=== PATIENT | male | born 1990 | race Two or more races ===

== ENCOUNTER 2024-12-16 22:06 | Emergency (ER) | payer SELFPAY ==
[2024-12-16 22:51] VITALS: BP 168/90; PULSE 71; RESP 20; TEMP 36.6; O2SAT 99; BMI 30.4
--- NOTE | 2024-12-16 23:37 | XR_ITS ---
Examination: Lumbar spine 3 views Technique AP lateral, lateral lower lumbar spine 3 views Date and time: December 16, 2024 1143 hours INDICATIONS: Low back pain radiating to the legs beginning 3 days ago. FINDINGS: No lumbar fracture Moderate to advanced disc narrowing L5-S1 No spondylolisthesis IMPRESSION: Moderate to advanced degenerative disc disease L5-S1
--- NOTE | 2024-12-16 23:40 | EDNOTE_ITS ---
ED General RME/HPI General Chief complaint: Back Pain/Injury Stated complaint: LEFT LOWER BACK RADIATING TO LEG X 3 DAYS Time Seen by Provider: 12/16/24 22:17 Arrival date/time: 12/16/24 22:06 RME / HPI RME / HPI narrative: 34-year-old male with no relevant past medical history comes to the ED due to complaints of left lower back pain with radiation to his left lower leg as well. Patient states that for the past 3 days he has not had this pain which has increased has been impairing his sleep and ability to lay flat and even sit down. Patient states that around 3 days ago he was lifting a heavy wood material from the ground and he felt something pull in his left lower back. Patient denies any loss of sensation in his lower extremity or any bowel incontinence or urinary incontinence. Denies any fevers, chest pain, shortness of breath, nausea, vomiting, abdominal pain, or burning sensation urination. Otherwise patient has no other complaints at this time. Admit social drinking, denies any smoking or illicit drugs Related Data Previous Rx's ?Medication ?Instructions ?Recorded baclofen 5 mg tablet 5 mg PO TID PRN muscle spasm #15 12/17/24 tabs naproxen 250 mg tablet 250 mg PO BID PRN pain #10 t abs 12/17/24 Allergies Allergy/AdvReac Type Severity Reaction Status Date / Time No Known Allergies Allergy Verified 12/16/24 22:08 Review of Systems Review of Systems Systems Reviewed: All systems reviewed, normal except as documented Past Medical History Past Medical History Comments PMH COMMENT: PMH: none Allergies: NKDA Social: Social drinker, denies illicit drugs or smoking ED Exam Narrative Physical exam: Gen: A&O X 3, mild distress due to pain HEENT: NCAT, EOMI, Pupils reactive OSCAR, not icteric. External ears normal. No rhinorrhea. Moist mucous membranes. Neck: Supple, full range of motion, no observable masses, No meningeal sign. Lungs: No Respiratory distress, clear bilateral. CV: RRR, no murmurs. Abdomen: Soft, nondistended, No rebound tenderness. MSK: No joint swelling, no redness, peripheral pulses presents, lumbar with no edema, Pain with palpation of L lower back, positive straight leg test. Skin: No rashes, petechiae, lesions. Neuro: No focal neurological deficits appreciated, sensory and motor intact. Psych: Cooperative, appropriate mood and effect. Course Quality Measures none Orders Category Date Time Status XR lumbar spine 2-3V Stat Exams 12/16/24 23:37 Completed Dexamethasone Inj [Decadron Inj] Med 12/16/24 23:39 Discontinued 10 mg IM X1 ONE Diazepam [Valium] Med 12/16/24 23:39 Discontinued 2 mg PO X1 ONE Ketorolac Inj [Toradol Inj] Med 12/16/24 23:39 Discontinued 30 mg IM X1 ONE Vital Signs Vital signs: Vital Signs Temperature 97.9 F 12/16/24 22:51 Pulse Rate 71 12/16/24 22:51 Respiratory Rate 20 12/16/24 22:51 Blood Pressure 168/90 H 12/16/24 22:51 Pulse Oximetry (%) 99 12/16/24 22:51 Oxygen Delivery Method Room Air 12/16/24 22:51 Discharge Plan Plan Patient Disposition: HOME (Self Care) Prescriptions/Referrals Prescriptions/Med Rec: New baclofen 5 mg tablet 5 mg PO TID PRN (Reason: muscle spasm) Qty: 15 0RF naproxen 250 mg tablet 250 mg PO BID PRN (Reason: pain) Qty: 10 0RF Problem List Clinical Impression: Lumbar radiculopathy Patient/Caregiver Discharge Instructions Other Activity Instructions:: Follow-up primary care physician within 5 days You have been prescribed baclofen 5 mg 3 times daily as needed for pain for the next 5 days. You have been prescribed naproxen 250 mg twice daily as needed for pain for the next 5 days. Recommend avoiding heavy lifting for now. Recommend outpatient physical therapy, you will have to see your primary care physician to refer you. Come back to the ED if pain worsens, develop any neurological deficits or have worsening symptoms. Saque antionette de seguimiento con pacheco doctor primario dentro de 5 mojica Se le carmen recetado Baclofen 5mg 3 veces al edwin miracle lo necesite para dolor por los proximos 5 mojica Se le carmen recetado Naproxen 250mg 2 veces al edwin miracle lo necesite para dolor por los proximos 5 mojica Recomendamos que evite levantar objetos pesados por 7 mojica Recomendamos terapia fisica, ulices necesitara un referido de pacheco doctor primario Ashutoshva a poly de emergencia si pacheco dolor empeora o si nota alguna deficiencia neurologica o peores sintomas. Education Materials: Back Safety: Lifting, ED Back Care Tips, ED Back Pain (Acute or Chronic) Print Language: Japanese Stand Alone Forms: Karina Award Info., Patient Portal Info Letter MDM Narrative [facility] hospital course: Patient was seen evaluated by myself upon arrival. Patient have a positive straight leg test, but no overt deformities or loss of sensation on physical exam. Diagnostic imaging was ordered and combination of Toradol, Decadron, and Valium was ordered. Patient is not currently driving and will have somebody pick him up from the ER once he is discharged. Lumbar spine XR did not show any fractures, but did show degenerative disc disease of L5-S1. Patient states his pain is slightly better. At this time patient is stable enough to be discharged home. Patient agrees with plan. Case disclosed with Attending Dr. Yair Parks PGY2 Disclaimer: Even though this this note was dictated by speech recognition and even though it was carefully revised there may still be minor errors in business control specialist due to voice recognition software. Medication Administration(s) Medication Administration History Discontinued Medications Dexamethasone Sodium Phosphate (Dexamethasone Sod Phos Inj 10 Mg/Ml Vial) 10 mg IM X1 ONE Stop: 12/16/24 23:40 Last Admin: 12/16/24 23:52 Dose: 10 mg Documented By: MISSY Diazepam (Diazepam 2 Mg Tablet) 2 mg PO X1 ONE Stop: 12/16/24 23:40 Last Admin: 12/16/24 23:52 Dose: 2 mg Documented By: MISSY Ketorolac Tromethamine (Ketorolac Inj 60 Mg/2 Ml Vial) 30 mg IM X1 ONE Stop: 12/16/24 23:40 Last Admin: 12/16/24 23:53 Dose: 30 mg Documented By: MISSY
[2024-12-16] MEDS: DIAZEPAM 2 MG TABLET PO (23:52)
[2024-12-16] MEDS: DEXAMETHASONE SOD PHOS INJ 10 MG/ML VIAL IM (23:52)
[2024-12-16] MEDS: KETOROLAC INJ 60 MG/2 ML VIAL 30 MG IM (23:53)
== END 2024-12-17 00:44 | disposition home or self-care (01) ==
DX: M54.16 Radiculopathy, lumbar region (principal)
CPT/HCPCS: 72100; 96372; 99283; J1100; J1885; A9270

== ENCOUNTER 2025-01-03 16:54 | Emergency (ER) | payer MEDICAID, SELFPAY ==
[2025-01-03 17:09] VITALS: BP 159/97; PULSE 78; RESP 18; TEMP 36.9; O2SAT 98; BMI 29.9
--- NOTE | 2025-01-03 17:28 | PD.EDBACK ---
ED Back Injury Pain RME/HPI General Chief Complaint: Back Pain/Injury Stated Complaint: Left lower back pain that radiates to his left leg Time Seen by Provider: 01/03/25 17:16 Arrival date/time: 01/03/25 16:54 RME / HPI RME / HPI Narrative: 34-year-old male patient came in for evaluation regarding sciatica. Patient has been having low back pain with pain radiating to the left lower abdomen back of the thigh and leg. Severity of symptoms moderate. Patient denies any urinary incontinence. Denies any bowel incontinence. Denies any saddle anesthesia patient is ambulatory with a walker crutches. Denies any weakness to the lower extremities. Denies any fever denies any trauma denies any fall. No medication was taken prior to arrival. Related Data Previous Rx's ?Medication ?Instructions ?Recorded baclofen 5 mg tablet 5 mg PO TID PRN muscle spasm #15 12/17/24 tabs naproxen 250 mg tablet 250 mg PO BID PRN pain #10 tabs 12/17/24 dexamethasone 6 mg tablet 6 mg PO QDAY #7 tabs 01/03/25 ibuprofen 800 mg tablet 800 mg PO Q8H PRN pain #30 tabs 01/03/25 methocarbamol 500 mg tablet 500 mg PO BID PRN pain #20 tabs 01/03/25 Allergies Allergy/AdvReac Type Severity Reaction Status Date / Time No Known Allergies Allergy Verified 01/03/25 17:01 Review of Systems Review of Systems Narrative Review of Systems: Review of system reviewed and within normal limits except mentioned in HPI ED Exam Narrative Physical exam: VITAL SIGNS: Reviewed. GENERAL APPEARANCE: Alert and interactive, follows commands, no acute distress, HEAD AND FACE: Non-traumatic. ENT: PERRL, pink conjunctivitis, eyelid no trauma, Mucous membrane moist. NECK: Supple, nontender, no nuchal rigidity. CHEST: No tenderness, no crepitus, no paradoxical movement, no retractions. LUNGS: Clear, well ventilated, symmetric, no rales, no wheezing, no ronchi, no stridor, good breath sounds bilaterally. HEART: Regular rate, regular rhythm, no murmur, no gallops. ABDOMEN: Soft, positive bowel sounds, nondistended, no guarding, nontender, no rebound, no masses, RECTAL: Deferred. GENITAL: Deferred. NEUROLOGICAL: Gross motor function intact sensory function intact, Appropriate for age. MUSCULOSKELETAL: low back tenderness, no midline tenderness, full range of motion. EXTREMITIES: Posterior thigh and leg tenderness, positive straight leg raising test at 45 degrees, full range of motion. SKIN: Color pink, dry, no rash, no lacerations, no abrasions, no contusions. LYMPHATICS: Deferred. Course Quality Measures none Orders Category Date Time Status Dexamethasone Inj [Decadron Inj] Med 01/03/25 17:27 Once 10 mg IM X1 ONE Ketorolac Inj [Toradol Inj] Med 01/03/25 17:27 Once 30 mg IM X1 ONE methocarbamoL [Robaxin] Med 01/03/25 17:27 Once 500 mg PO X1 ONE Vital Signs Vital signs: Vital Signs Temperature 98.4 F 01/03/25 17:09 Pulse Rate 78 01/03/25 17:09 Respiratory Rate 18 01/03/25 17:09 Blood Pressure 159/97 H 01/03/25 17:09 Pulse Oximetry (%) 98 01/03/25 17:09 Oxygen Delivery Method Room Air 01/03/25 17:09 Back Pain / Injury MDM Narrative MDM Narrative:: 34-year-old male patient came in for evaluation regarding sciatica. Patient has been having low back pain with pain radiating to the left lower abdomen back of the thigh and leg. Severity of symptoms moderate. Patient denies any urinary incontinence. Denies any bowel incontinence. Denies any saddle anesthesia patient is ambulatory with a walker crutches. Denies any weakness to the lower extremities. Denies any fever denies any trauma denies any fall. No medication was taken prior to arrival. Imaging workup is not needed this time patient not showing any cauda equina syndrome. Patient received Toradol Decadron and Robaxin with significant improvement of symptoms. Patient was advised to closely follow-up with PCP and for referral to spine surgeon or outpatient MRI of the lumbar spine. Patient family agrees with the plan. Patient data External records reviewed:: None Clinical information provided by:: patient Social determinants that could affect healthcare access:: none Patient has the following chronic illnesses:: None How is presenting disease/condition affected by chronic disease/condition?: no chronic disease Evaluation data The following diagnostics were reviewed and interpreted by me:: other (specify) (None) Lab and/or radiology exams considered but not ordered:: None Interpretation Summary: None Medications / Prescriptions Medications or Prescriptions considered but not ordered:: None Medication administrations:: Toradol Decadron Robaxin Consultations Consultation(s) initiated? (list below): No Diagnosis Differential diagnosis back pain/injury: lumbar radiculopathy, sciatica and other ( Sciatica) Most likely diagnosis given after review of the tests above:: Sciatica Admission Indicated Admission indicated?: not indicated Admission Request Was there a request for admission?: No Disposition Plan Disposition Plan: Discharge Discharge Attestation Discharge Attestation: The patient and all family members were given an opportunity to ask questions and understood the discharge instructions. Discharge instructions specifically effects, indications for sooner follow up or return to the emergency department, and the expected course of current diagnosis. Patient condition: Stable Discharge Plan Plan Patient Disposition: HOME (Self Care) Discharge Disposition comment: Stable Prescriptions/Referrals Prescriptions/Med Rec: New dexamethasone 6 mg tablet 6 mg PO QDAY Qty: 7 0RF methocarbamol 500 mg tablet 500 mg PO BID PRN (Reason: pain) Qty: 20 0RF ibuprofen 800 mg tablet 800 mg PO Q8H PRN (Reason: pain) Qty: 30 0RF No Action baclofen 5 mg tablet 5 mg PO TID PRN (Reason: muscle spasm) Qty: 15 0RF naproxen 250 mg tablet 250 mg PO BID PRN (Reason: pain) Qty: 10 0RF Problem List Clinical Impression: Sciatica Patient/Caregiver Discharge Instructions Discharge Activity: activity as tolerated Education Materials: ED Sciatica Additional Instructions: Thank you for the opportunity for serving you today. You are stable for discharged . You are advised to: Follow-up with your PCP in 1 to 2 days and ask for outpatient MRI of the lumbar spine or referral to physical therapy. Return to ED for worsening of symptoms Increase oral fluids Take medication as prescribed Print Language: Guamanian Stand Alone Forms: Karina Award Info., Patient Portal Info Letter PRAVIN/MAGGIE Supervising Physician PRAVIN/MAGGIE Supervising Physician: MD Cassandra
[2025-01-03] MEDS: KETOROLAC INJ 60 MG/2 ML VIAL 30 MG IM (17:57)
[2025-01-03] MEDS: DEXAMETHASONE SOD PHOS INJ 10 MG/ML VIAL IM (17:58)
== END 2025-01-03 18:25 | disposition home or self-care (01) ==
LOC: SERX 18:13
PROVIDERS: Emergency Provider Family Medicine
DX: M54.42 Lumbago with sciatica, left side (principal)
CPT/HCPCS: 96372; 99283; J1100; J1885

== ENCOUNTER 2025-03-29 16:00 | Inpatient (IN) | payer MEDICAID, SELFPAY ==
[2025-03-29 16:29] VITALS: BP 148/93; PULSE 101; RESP 19; TEMP 36.8; O2SAT 100; BMI 24.7
--- NOTE | 2025-03-29 16:40 | PD.EDRME ---
Rapid Medical Screening Exam RME Arrival date/time: 03/29/25 16:00 34-year-old male with a history of type 2 diabetes, was sent to the emergency room by his primary care provider for an elevated blood sugar level. Patient states he does not know how high his sugar was but was told to come to the emergency room I have greeted and performed a focused initial assessment of this patient. A comprehensive ED assessment and evaluation of the patient, analysis of all test results, and completion of the medical decision making process will be conducted by additional ED providers. Chief Complaint: Recheck/Abnormal Lab/Rx Vital signs: Vital Signs Temperature 98.2 F 03/29/25 16:29 Pulse Rate 101 H 03/29/25 16:29 Respiratory Rate 19 03/29/25 16:29 Blood Pressure 148/93 H 03/29/25 16:29 Pulse Oximetry (%) 100 03/29/25 16:29 Oxygen Delivery Method Room Air 03/29/25 16:29 Vital signs reviewed by provider: Yes Exam: Clear bilateral lung sounds GCS of 15 Soft nontender abdomen Clinical Impression: Hyperglycemia/DKA
[2025-03-29 17:07] LABS: Basophils # (Auto) 0.1 Thou/mm3 (0.0-0.2); Basophils % (Auto) 1 % (0-2.5); Eosinophils # (Auto) 0.0 Thou/mm3 (0.0-0.5); Eosinophils % (Auto) 0 % (0-10); Hematocrit 45.5 % (41.0-53.0); Hemoglobin 15.6 g/dL (13.5-16.0); Immature Granulocytes Auto 0.05 Thou/mm3 (0.00-0.00); Lymphocytes # (Auto) 1.4 Thou/mm3 (1.0-4.8); Lymphocytes % (Auto) 19 % (10-50); Mean Corpuscular HGB Conc 34.3 g/dl (31.0-37.0); Mean Corpuscular Hemoglobin 33.1 pg (25.0-35.0); Mean Corpuscular Volume 96 fL (80-100); Monocytes # (Auto) 0.5 Thou/mm3 (0.0-0.8); Monocytes % (Auto) 7 % (0-12); Neutrophils # (Auto) 5.6 Thou/mm3 (1.8-7.7); Neutrophils % (Auto) 73 % (37-80); Nucleated Red Blood Cell # 0.00 Thou/mm3 (0.00-0.00); Nucleated Red Blood Cell % 0 /100 WBC (0); Platelet Count 238 Thou/mm3 (140-440); RDW Standard Deviation 48.2 fL (35.1-43.9); Red Blood Count 4.72 Miln/mm3 (4.50-5.90); White Blood Count 7.7 Thou/mm3 (3.8-10.6)
[2025-03-29 17:10] LABS: Beta Hydroxybutyrate > 6.4 mmol/L (<0.6)
[2025-03-29 17:28] LABS: INR 0.9 (0.9-1.3); Partial Thromboplastin Time 29.8 Seconds (22.0-36.0); Prothrombin Time 9.8 Seconds (9.0-12.2)
[2025-03-29 17:36] LABS: Alanine Aminotransferase 11 U/L (10-49); Albumin, Serum 5.3 gm/dL (3.5-5.0); Albumin/Globulin Ratio 2.5 (1.2-2.2); Alkaline Phosphatase 107 U/L (46-116); Anion Gap 20 (7-16); Aspartate Amino Transferase 14 U/L (0-34); BUN/Creatinine Ratio 5 Ratio (12-20); Bilirubin,Total 1.2 mg/dL (0.3-1.2); Blood Urea Nitrogen 7 mg/dL (9-23); Calcium 8.9 mg/dL (8.3-10.6); Calcium (Corrected) 8.9 mg/dL (8.5-10.1); Chloride 105 mMol/L (98-107); Creatinine (Component) 1.3 mg/dL (0.6-1.3); Estimated Creatinine Clearance 69.6 mL/min (>60); Globulin 2.1 gm/dL (2.3-3.5); Glucose 371 mg/dL (74-106); Osmolality,Calculated 283 (275-295); Potassium 4.6 mMol/L (3.4-5.1); Sodium 135 mMol/L (136-145); Total Protein 7.4 gm/dL (5.7-8.2); eGFR > 60 See Note
[2025-03-29 17:39] LABS: Carbon Dioxide < 10.0 mMol/L (20.0-31.0)
[2025-03-29 17:57] LABS: Lactate (Lactic Acid) 1.2 mMol/L (0.4-2.0)
[2025-03-29 17:58] LABS: Base Excess, Venous -22 (-3-3); O2 Saturation, Venous 63 % (96-97); PCO2, Venous 21 mmHg (36-56); PO2, Venous 32 mmHg (15-58); pH, Venous 7.08 (7.33-7.66)
[2025-03-29 18:11] LABS: Magnesium 2.0 mg/dL (1.6-2.6)
[2025-03-29 18:17] VITALS: BP 140/99; PULSE 88; RESP 18; O2SAT 100
[2025-03-29] MEDS: INSULIN REG 100 UNITS/100 ML 100 UNIT/100 ML BAG 6.736 UNIT IV (18:29)
[2025-03-29] MEDS: RINGERS LACTATED 1000 ML 1,000 ML 999 ML IV ×2 (18:36→18:37)
--- NOTE | 2025-03-29 18:55 | XR_ITS ---
EXAMINATION: AP chest single view TECHNIQUE: AP portable upright chest single view Date and time: March 29, 2025, 190 hours INDICATIONS: Weakness shortness of breath today. FINDINGS: Normal heart size Lungs are clear. Osseous structures are intact IMPRESSION: No active disease
--- NOTE | 2025-03-29 18:55 | EKG_ITS ---
[facility] Test Date: 2025-03-29 Pat Name: Maximo Navarro Department: Room: - Gender: Male Bundle Tier: : 1990 Requested By: Valente Rose Order Number: [id number] Reading MD: Valente Rose Measurements Intervals [place] Rate: 86 P: 25 ND: 150 QRS: 48 QRSD: 100 T: -81 QT: 360 QTc: 432 Interpretive Statements SINUS RHYTHM MODERATE T-WAVE ABNORMALITY, CONSIDER LATERAL ISCHEMIA [-0.1+ mV T-WAVE IN I/aVL/V5/V6] MODERATE T-WAVE ABNORMALITY, CONSIDER INFERIOR ISCHEMIA [-0.1+ mV T-WAVE IN II/aVF] No previous ECG available for comparison /store/S0/[id number]/[id number].pdf
--- NOTE | 2025-03-29 19:02 | PD.RESHP ---
Documentation for date of: 03/29/25 [facility] History of Present Illness Chief complaint: abdominal pain History of present illness: Patient is 34 years old male with past medical history of recently diagnosed type 2 diabetes mellitus presented to the ED after routine outpatient labs when he was found to have significantly elevated glucose and was referred to the emergency room. Patient reports he developed abdominal pain approximately since yesterday. He also reports some nausea but no vomiting episodes. He reported polyuria but no dysuria symptoms. He denies any chest pain, headache, blood per rectum, melena, hematuria. His abdominal pain mostly localized in epigastrium. He denies drinking alcohol recently. Patient reported he was diagnosed with diabetes yesterday and was started on oral medication he cannot recall the name of. He does not take any other medications on daily basis and was not started on any new medication recently. In the ED on admission his blood pressure 140/99, pulse 88, respirations 18, patient 98.2 ?F, oxygen saturation 100% on room air. CBC was unremarkable. Chemistry showed sodium 135, bicarb undetectable <10, anion gap 20, glucose 371, lactic acid 1.2, potassium 4.6, magnesium 2, BHB > 6.4. VBG showed pH 7.08, pCO2 21. Patient was started on IV insulin in the ED and was admitted to ICU for further management of DKA. PMH: Recently diagnosed type 2 diabetes mellitus. PSH: Appendectomy. SH: Drinks alcohol socially, denies smoking or using illicit drugs. FH: Brother, sister and mother had diabetes. Allergies: NKA. Medications: Unknown medication for diabetes. Review of Systems Review of Systems Systems Reviewed: All systems reviewed, normal except as documented Exam Vital Signs Temp Pulse Resp BP Pulse Ox O2 Del Method 98.2 F 88 18 140/99 H 100 Room Air 03/29/25 16:29 03/29/25 18:17 03/29/25 18:17 03/29/25 18:17 03/29/25 18:17 03/29/25 18:17 Narrative Exam Gen: Well-developed and well-nourished. HEENT: NCAT, PERRLA, EOMI, MMM, anicteric conjunctivae. CVS: normal S1 and S2. Regular tachycardia. No M/R/G. Resp: CTA B/L. No rhonchi, rales, crackles or wheezing. Abd: soft, mildly tender in epigastrium, non-distended. BS+ in all 4 quadrants. MSK: Good ROM in BUE & BLE. No edema or rash. Neuro: CN II-XII grossly intact. Strength 5/5 in BUE & BLE. Alert and oriented x3. Psych: appropriate mood and affect. Results: Labs 03/31/25 05:10 03/31/25 05:10 Labs: Short CBC 03/29/25 Range/Units 16:45 WBC 7.7 (3.8-10.6) Thou/mm3 Hgb 15.6 (13.5-16.0) g/dL Hct 45.5 (41.0-53.0) % Plt Count 238 (140-440) Thou/mm3 BMP 03/29/25 16:45 Sodium 135 L Potassium 4.6 Chloride 105 Carbon Dioxide < 10.0 L* BUN 7 L Creatinine 1.3 Glucose 371 H Calcium 8.9 Liver Function 03/29/25 Range/Units 16:45 Total Bilirubin 1.2 (0.3-1.2) mg/dL AST 14 (0-34) U/L ALT 11 (10-49) U/L Alkaline Phosphatase 107 (46-116) U/L Albumin 5.3 H (3.5-5.0) gm/dL ABG Interpretation ABG results: 03/29/25 17:52 VBG pH 7.08 L VBG pCO2 21 L VBG pO2 32 VBG Base Excess -22 L Quality Measures Quality Measures VTE prophylaxis Medications Home Medications and Allergies Home Medications ?Medication ?Instructions ?Recorded ?Confirmed ?Type famotidine 20 mg tablet 20 mg PO BID 03/29/25 03/29/25 History Allergies Allergy/AdvReac Type Severity Reaction Status Date / Time No Known Allergies Allergy Verified 03/29/25 16:03 Visit Medications Dextrose (Dextrose 50%-Water Inj 50 Ml Syringe) 25 ml IV PRNMRX1 PRN PRN Reason: Blood Sugar - Low Enoxaparin Sodium (Enoxaparin Sod Inj 40 Mg/0.4 Ml Syringe) 40 mg SC QDAY EVIN Stop: 04/13/25 08:59 Insulin Human Regular (Myxredlin) 100 unit in 100 mls @ 6.736 mls/hr IV .[id number] PRN; Protocol PRN Reason: PER PROTOCOL Stop: 04/28/25 17:50 Last Admin: 03/29/25 18:29 Dose: 0.1 unit/kg/hr, 6.736 mls/hr Potassium Chloride (Kcl Ivpb) 10 meq in 100 mls @ 100 mls/hr IV .Q1H PRN PRN Reason: IF POTASSIUM LESS THAN 3.3 Stop: 04/28/25 18:54 Magnesium Sulfate (Magnesium Sulfate Ivpb) 2 gm in 50 mls @ 25 mls/hr IV .Q2H PRN PRN Reason: PER DKA PROTOCOL Stop: 04/28/25 18:54 Insulin Human Regular 100 unit (/ IV Miscellaneous Supplies) 100 mls @ 6.736 mls/hr IV .[id number] PRN; Protocol PRN Reason: PER PROTOCOL Stop: 04/28/25 18:54 Dextrose/Lactated Ringer's (D5-Lr) 1,000 mls @ 250 mls/hr IV .Q4H PRN PRN Reason: PER PROTOCOL Stop: 04/28/25 18:54 Lactated Ringer's (Lactated Ringers) 1,000 mls @ 250 mls/hr IV .Q4H PRN PRN Reason: PER PROTOCOL Stop: 03/30/25 18:54 Potassium Chloride 20 meq/ (Lactated Ringer's) 1,010 mls @ 250 mls/hr IV .Q4H3M PRN PRN Reason: K LEVEL 3.3 TO 5.3mM/L Stop: 04/28/25 18:54 Potassium Chloride 40 meq/ (Lactated Ringer's) 1,020 mls @ 250 mls/hr IV .Q4H5M PRN PRN Reason: K LEVEL < 3.3 mM/L Stop: 04/28/25 18:54 Potassium Chloride 40 meq/ (Dextrose/Lactated Ringer's) 1,020 mls @ 250 mls/hr IV .Q4H5M PRN PRN Reason: K LEVEL < 3.3mM/L Stop: 04/28/25 18:54 Potassium Cl/Dextrose/Lact Ringer's (Kcl 20 Meq/L In D5-Lr) 20 meq in 1,000 mls @ 250 mls/hr IV .Q4H PRN PRN Reason: K LEVEL 3.3 TO 5.3 mM/L Potassium Chloride (Kcl Ivpb) 10 meq in 100 mls @ 50 mls/hr IV PRN PRN PRN Reason: K LEVEL 3.3 to 5.3 & BG > 200 Stop: 04/28/25 18:54 Potassium Phosphate (Pot Phos 15 Mmol In Ns 250 Ml) 15 mmol in 250 mls @ 62.5 mls/hr IV PRN PRN PRN Reason: Phosphate <= 1mg/dL Stop: 04/28/25 18:54 Sodium Phosphate 15 mmol/ (Sodium Chloride) 255 mls @ 62.5 mls/hr IV .Q4H5M PRN PRN Reason: Phosphate <= 1mg/dL and K> than 5.3 Stop: 04/28/25 18:54 Sodium Bicarbonate (Sodium Bicarb Inj 8.4% Syr 50 Ml Syringe) 50 ml IV Q4HR PRN PRN Reason: For ph <= to 7.0 Stop: 04/28/25 18:54 Discontinued Medications Lactated Ringer's (Lactated Ringers) 1,000 mls @ 999 mls/hr IV .Q1H1M ONE Stop: 03/29/25 18:51 Last Admin: 03/29/25 18:36 Dose: 999 mls/hr Lactated Ringer's (Lactated Ringers) 1,000 mls @ 999 mls/hr IV .Q1H1M ONE Stop: 03/29/25 18:51 Last Admin: 03/29/25 18:37 Dose: 999 mls/hr Assessment & Plan Plan Patient is 34 years old male with past medical history of recently diagnosed type 2 diabetes mellitus presented to the ED after routine outpatient labs when he was found to have significantly elevated glucose and was referred to the emergency room. Patient reports he developed abdominal pain approximately since yesterday. Chemistry showed bicarb undetectable <10, anion gap 20, glucose 371, BHB > 6.4. VBG showed pH 7.08, pCO2 21. Patient was started on IV insulin in the ED and was admitted to ICU for further management of DKA. Neuro: No active problem. Cardiovascular: #Elevated BP. Patient reports he never been diagnosed with hypertension. Possibly due to acute status due to DKA. Will continue to monitor. Respiratory: No active problem. Gastrointestinal: #Abdominal pain. In setting of DKA. Will continue to monitor. Renal: #HAGMA. #?NICOL. Chemistry showed bicarb undetectable <10, anion gap 20, lactic acid 1.2, BHB > 6.4, Cr 1.3. VBG showed pH 7.08, pCO2 21. Plan: - management per DKA protocol. Endocrine: #Recently diagnosed diabetes mellitus. #DKA. Per patient he was diagnosed with diabetes yesterday and was started on unknown oral medication. He also had his routine labs done and was notified by his provider that he needed to go to ED due to significantly elevated glucose level. Patient reports that he started new medication for diabetes but cannot recall the name. On admission patient complains of abdominal pain, nausea and polyuria. Chemistry showed bicarb undetectable <10, anion gap 20, glucose 371, lactic acid 1.2, potassium 4.6, magnesium 2, BHB > 6.4. VBG showed pH 7.08, pCO2 21. Patient was started on IV insulin in the ED and was admitted to ICU for further management of DKA. Plan: - started on IV insulin drip. - fluid and electrolytes management per DKA protocol. Infectious Disease: No active problem. Hematology/Oncology: No active problem. Diet: NPO. DVT prophylaxis: Lovenox. GI prophylaxis: None. Code status: FULL CODE. Disposition: ICU. Plan of care discussed with attending Dr. Olivo. Valente Rose MD, PGY 3. Disclaimer: This note was dictated by speech recognition. Minor errors in band lining bander may be present due to voice recognition software. Attending Provider Attestation/Addendum After examining patient and review of the clinical data patient was found to have high probability of imminent deterioration which required my direct management and intervention TOTAL CC TIME: 45 MIN TOTAL TIME: 45 Minutes of direct medical management and planning of care. I Katelynn Olivo MD, attest that I was physically present for rucker portions of evaluation, and examined patient, labs and imagings and plan of care were discussed with IM residents team, and I agree with the findings and plans documented above. this patient had a high probability of imminent or life-threatening deterioration due to severe symptomatic hyponatremia, which required my direct attention, intervention, and personal management
[2025-03-29 19:25] LABS: Base Excess, Venous -23 (-3-3); O2 Saturation, Venous 62 % (96-97); PCO2, Venous 18 mmHg (36-56); PO2, Venous 32 mmHg (15-58); pH, Venous 7.09 (7.33-7.66)
[2025-03-29 19:39] LABS: Lactate (Lactic Acid) 11.4 mMol/L (0.4-2.0)
[2025-03-29 19:46] VITALS: BP 140/93; PULSE 86; RESP 28; TEMP 36.6; O2SAT 100
[2025-03-29 19:52] LABS: Albumin, Serum 2.5 gm/dL (3.5-5.0); Anion Gap 20 (7-16); BUN/Creatinine Ratio 10 Ratio (12-20); Blood Urea Nitrogen < 5 mg/dL (9-23); Calcium 7.3 mg/dL (8.3-10.6); Calcium (Corrected) 8.5 mg/dL (8.5-10.1); Chloride 108 mMol/L (98-107); Creatinine (Component) 0.5 mg/dL (0.6-1.3); Estimated Creatinine Clearance 181.1 mL/min (>60); Glucose 221 mg/dL (74-106); Magnesium 1.0 mg/dL (1.6-2.6); Osmolality,Calculated 279 (275-295); Phosphorous 1.2 mg/dL (2.4-5.1); Potassium 4.3 mMol/L (3.4-5.1); Sodium 138 mMol/L (136-145); eGFR > 60 See Note
[2025-03-29 19:55] LABS: Carbon Dioxide < 10.0 mMol/L (20.0-31.0)
[2025-03-29] MEDS: Magnesium Sulfate 2 GM Ivpb 2 GM/50 ML BAG IV (20:17)
[2025-03-29] MEDS: RINGERS LACTATED 500 ML 500 ML 999 ML IV (20:25)
[2025-03-29 20:29] LABS: Troponin I < 0.002 ng/mL (0.0-0.045)
[2025-03-29 20:31] LABS: Glucose Estimated Average 301 mg/dL (80-131); Hemoglobin A1C 12.1 % Hgb (4.8-6.0)
[2025-03-29 21:00] VITALS: BP 123/91; PULSE 89; RESP 25; TEMP 36.2; O2SAT 100
[2025-03-29 21:07] LABS: Cardiac Risk Estimate 7.9 RATIO (4.0-6.7); Cholesterol 323 mg/dL (132-200); HDL Cholesterol 41 mg/dL (40-60); LDH (Lactate Dehydrogenase) 138 U/L (120-246); LDL Cholesterol,Calculated 204 mg/dL (0-130); Triglycerides 391 mg/dL (30-150)
[2025-03-29] MEDS: RINGERS LACTATED 1000 ML 1,000 ML 250 ML IV (21:09)
[2025-03-29] MEDS: POTASSIUM CHL 10 mEq IVPB 10 MEQ/100 ML BAG 50 MEQ IV ×2 (21:20→23:26)
[2025-03-29 21:29] LABS: Lactate (Lactic Acid) 1.6 mMol/L (0.4-2.0)
[2025-03-29 22:00] VITALS: BP 115/77; PULSE 81; RESP 20; O2SAT 100
[2025-03-29 22:24] LABS: Reflex Lactate? Y
[2025-03-29 23:00] VITALS: BP 117/72; PULSE 84; RESP 20; O2SAT 100
[2025-03-30] VITALS (13 sets, daily range): BP systolic 98–118; BP diastolic 62–79; PULSE 64–78; RESP 13–23; TEMP 36.3–36.9; O2SAT 99–100; BMI 24.3; BMI 24.4
[2025-03-30 00:44] LABS: Albumin, Serum 3.9 gm/dL (3.5-5.0); Anion Gap 16 (7-16); BUN/Creatinine Ratio 6 Ratio (12-20); Blood Urea Nitrogen < 5 mg/dL (9-23); Calcium 7.7 mg/dL (8.3-10.6); Calcium (Corrected) 7.8 mg/dL (8.5-10.1); Carbon Dioxide 11.9 mMol/L (20.0-31.0); Chloride 112 mMol/L (98-107); Creatinine (Component) 0.8 mg/dL (0.6-1.3); Estimated Creatinine Clearance 113.2 mL/min (>60); Glucose 232 mg/dL (74-106); Magnesium 1.8 mg/dL (1.6-2.6); Osmolality,Calculated 283 (275-295); Phosphorous 1.1 mg/dL (2.4-5.1); Potassium 3.2 mMol/L (3.4-5.1); Sodium 140 mMol/L (136-145); eGFR > 60 See Note
[2025-03-30] MEDS: POT CHL ADDITIVE 40 MEQ in DEXTROSE 5%-LACTATED RINGERS 1,000 ML 250 MEQ IV ×2 (01:00→06:58)
[2025-03-30] MEDS: POT CHL ADDITIVE 40 MEQ in RINGERS LACTATED 1000 ML 1,000 ML 250 MEQ IV (02:00)
[2025-03-30] MEDS: POT PHOS 15 mMol in NS 250 ML 15 MMOL/250 ML BAG 62.5 MMOL IV (04:30)
[2025-03-30] MEDS: Magnesium Sulfate 4 GM Ivpb 4 GM/50 ML BAG IV (05:00)
[2025-03-30 05:32] LABS: Basophils # (Auto) 0.0 Thou/mm3 (0.0-0.2); Basophils % (Auto) 1 % (0-2.5); Eosinophils # (Auto) 0.1 Thou/mm3 (0.0-0.5); Eosinophils % (Auto) 1 % (0-10); Hematocrit 34.0 % (41.0-53.0); Hemoglobin 12.0 g/dL (13.5-16.0); Immature Granulocytes Auto 0.04 Thou/mm3 (0.00-0.00); Lymphocytes # (Auto) 0.8 Thou/mm3 (1.0-4.8); Lymphocytes % (Auto) 14 % (10-50); Mean Corpuscular HGB Conc 35.3 g/dl (31.0-37.0); Mean Corpuscular Hemoglobin 33.1 pg (25.0-35.0); Mean Corpuscular Volume 94 fL (80-100); Monocytes # (Auto) 0.7 Thou/mm3 (0.0-0.8); Monocytes % (Auto) 13 % (0-12); Neutrophils # (Auto) 3.9 Thou/mm3 (1.8-7.7); Neutrophils % (Auto) 70 % (37-80); Nucleated Red Blood Cell # 0.00 Thou/mm3 (0.00-0.00); Nucleated Red Blood Cell % 0 /100 WBC (0); Platelet Count 173 Thou/mm3 (140-440); RDW Standard Deviation 45.9 fL (35.1-43.9); Red Blood Count 3.63 Miln/mm3 (4.50-5.90); White Blood Count 5.5 Thou/mm3 (3.8-10.6)
[2025-03-30 05:47] LABS: Albumin, Serum 3.8 gm/dL (3.5-5.0); Anion Gap 12 (7-16); BUN/Creatinine Ratio 6 Ratio (12-20); Blood Urea Nitrogen < 5 mg/dL (9-23); Calcium 7.9 mg/dL (8.3-10.6); Calcium (Corrected) 8.1 mg/dL (8.5-10.1); Carbon Dioxide 17.4 mMol/L (20.0-31.0); Chloride 114 mMol/L (98-107); Creatinine (Component) 0.8 mg/dL (0.6-1.3); Estimated Creatinine Clearance 113.2 mL/min (>60); Glucose 208 mg/dL (74-106); Magnesium 1.8 mg/dL (1.6-2.6); Osmolality,Calculated 288 (275-295); Phosphorous 1.6 mg/dL (2.4-5.1); Potassium 3.3 mMol/L (3.4-5.1); Sodium 143 mMol/L (136-145); Thyroid Stimulating Hormone 1.65 uIU/mL (0.55-4.78); eGFR > 60 See Note
[2025-03-30 07:23] LABS: Misc Send Out* See Sep Rpt
[2025-03-30] MEDS: ENOXAPARIN SOD INJ 40 MG/0.4 ML SYRINGE SC (08:00)
[2025-03-30 08:02] LABS: Albumin, Serum 3.6 gm/dL (3.5-5.0); Anion Gap 10 (7-16); BUN/Creatinine Ratio 6 Ratio (12-20); Blood Urea Nitrogen < 5 mg/dL (9-23); Calcium 7.9 mg/dL (8.3-10.6); Calcium (Corrected) 8.2 mg/dL (8.5-10.1); Carbon Dioxide 18.7 mMol/L (20.0-31.0); Chloride 115 mMol/L (98-107); Creatinine (Component) 0.8 mg/dL (0.6-1.3); Estimated Creatinine Clearance 113.2 mL/min (>60); Glucose 169 mg/dL (74-106); Magnesium 2.0 mg/dL (1.6-2.6); Osmolality,Calculated 288 (275-295); Phosphorous 2.0 mg/dL (2.4-5.1); Potassium 3.3 mMol/L (3.4-5.1); Sodium 144 mMol/L (136-145); eGFR > 60 See Note
[2025-03-30] MEDS: INSULIN DEGLUDEC 5 UNIT/0.05 ML (PER 5 UNITS) 15 UNIT SC (08:38)
[2025-03-30 10:10] LABS: Collection Type, Urine Clean Catch; RBC,Urine 0 /hpf (0-3); Squamous Epithelial Cell,Urine 0 /hpf (0-5); WBC,Urine 0 /hpf (0-5)
[2025-03-30 10:54] LABS: Bilirubin,Urine Negative (Negative); Blood,Urine Negative (Negative); Budding Yeast,Urine Present; Clarity,Urine Clear (Clear/Hazy); Color,Urine Colorless (Lt Yel-Yel); Glucose, Urine 4+ (Negative); Ketones,Urine 4+ (Negative); Leukocyte Esterase,Urine Negative (Negative); Nitrite,Urine Negative (Negative); PH,Urine 5.5 (5.0-7.0); Protein,Urine Negative (Neg - Trace); Specific Gravity,Urine 1.021 (1.001-1.035); Urobilinogen,Urine Negative mg/dL (0.0-1.0)
[2025-03-30] MEDS: INSULIN LISPRO (AdmeLOG) 1 UNIT/0.01 ML UNIT SC ×3 (11:27→21:29)
[2025-03-30] MEDS: INSULIN LISPRO (AdmeLOG) 1 UNIT/0.01 ML UNIT 5 UNIT SC ×2 (11:27→17:16)
[2025-03-30 11:35] LABS: Albumin, Serum 3.7 gm/dL (3.5-5.0); Anion Gap 11 (7-16); BUN/Creatinine Ratio 6 Ratio (12-20); Blood Urea Nitrogen < 5 mg/dL (9-23); Calcium 7.9 mg/dL (8.3-10.6); Calcium (Corrected) 8.1 mg/dL (8.5-10.1); Carbon Dioxide 19.6 mMol/L (20.0-31.0); Chloride 110 mMol/L (98-107); Creatinine (Component) 0.8 mg/dL (0.6-1.3); Estimated Creatinine Clearance 113.2 mL/min (>60); Glucose 252 mg/dL (74-106); Osmolality,Calculated 287 (275-295); Phosphorous 2.5 mg/dL (2.4-5.1); Potassium 3.6 mMol/L (3.4-5.1); Sodium 141 mMol/L (136-145); eGFR > 60 See Note
--- NOTE | 2025-03-30 12:04 | ESPR_ITS ---
<Statement entered by Melquiades Parks MD - 03/30/25 16:50> I have reviewed the note and agree with the resident's assessment & plan with exceptions as below. I have personally reviewed labs, imaging, home meds/prior records, examined the patient, formulated and discussed management plan with my attending. Patient was seen examined bedside. No acute overnight events. Patient was admitted overnight secondary to DKA. Anion gap closed twice this a.m. and was transition to subcu insulin. Patient still has some mild acidosis with hyperchloremia likely secondary to IV fluids versus possibly of patient having some underlying RTA. Given that patient is able to maintain p.o. intake and his anion gap closed times at this time we will downgrade back to the medical floors. Patient did mention that he was taking a blue pill what seems to be metformin as he stated that was for diabetes therefore given that he had a lactic acidosis could consider discontinuing metformin if patient is in fact taking this. Melquiades Parks PGY2 Disclaimer: Even though this this note was dictated by speech recognition and even though it was carefully revised there may still be minor errors in chemical production technician due to voice recognition software. Documentation for date of: 03/30/25 Subjective Subjective Interval history: History of present illness: Patient is 34 years old male with past medical history of recently diagnosed type 2 diabetes mellitus presented to the ED after routine outpatient labs when he was found to have significantly elevated glucose and was referred to the emergency room. Patient reports he developed abdominal pain approximately since yesterday. He also reports some nausea but no vomiting episodes. He reported polyuria but no dysuria symptoms. He denies any chest pain, headache, blood per rectum, melena, hematuria. His abdominal pain mostly localized in epigastrium. He denies drinking alcohol recently. Patient reported he was diagnosed with diabetes yesterday and was started on oral medication he cannot recall the name of. He does not take any other medications on daily basis and was not started on any new medication recently. In the ED on admission his blood pressure 140/99, pulse 88, respirations 18, patient 98.2 ?F, oxygen saturation 100% on room air. CBC was unremarkable. Chemistry showed sodium 135, bicarb undetectable <10, anion gap 20, glucose 371, lactic acid 1.2, potassium 4.6, magnesium 2, BHB > 6.4. VBG showed pH 7.08, pCO2 21. Patient was started on IV insulin in the ED and was admitted to ICU for further management of DKA. PMH: Recently diagnosed type 2 diabetes mellitus. PSH: Appendectomy. SH: Drinks alcohol socially, denies smoking or using illicit drugs. FH: Brother, sister and mother had diabetes. Allergies: NKA. Medications: Unknown medication for diabetes. 03/30/25: Patient seen and assessed at bedside. No acute events overnight. Potassium 3.2, given total 100 mEq KCl, additional 40 mEq KCl. Repeat potassium 3.6, given another 40 mEq KCl orally. Continues to endorse mild nausea and abdominal discomfort, Zofran prn. Anion gap closed, bicarb improving. Hgb dropped to 12 today, likely hemodilutional, low concern for acute GI bleed at this time as there has been no reported melena or blood in stool. Transitioned off IV insulin, given insulin degludec 15 units x1. Based on body weight, started on degludec 15 units, lispro 5 units AC with sliding scale. Follow up urine electrolytes to rule out RTA. Patient downgraded to med/surg today as he is stable off IV insulin and DKA has resolved. Exam Vital Signs Temp Pulse Resp BP Pulse Ox O2 Del Method 97.7 F 74 23 H 117/68 99 Room Air 03/30/25 12:00 03/30/25 12:00 03/30/25 12:00 03/30/25 12:00 03/30/25 12:00 03/30/25 10:00 Narrative Exam Physical Exam General: Awake and in no acute distress. Conversational and non-toxic appearing. [place]ian speaking male. HEENT: Normocephalic, atraumatic, mucous membranes moist. Heart: Regular rate and rhythm, normal S1 and S2, no murmurs. Lungs: Clear to auscultation with no wheezing or crackles. Abdomen: Soft, nondistended, nontender, positive bowel sounds. No guarding or rebound tenderness. Neurologic: Alert and oriented x3, no gross neurological deficit, and patient able to move all 4 extremities. Extremities: No edema. Skin: No rash or ecchymoses. Objective Labs 03/31/25 05:10 03/31/25 05:10 Labs: Laboratory Results - last 24 hr 11/03/29/25 03/29/25 16:45 17:52 19:14 WBC 7.7 RBC 4.72 Hgb 15.6 Hct 45.5 MCV 96 MCH 33.1 MCHC 34.3 RDW Std Deviation 48.2 H Plt Count 238 Neut % (Auto) 73 Lymph % (Auto) 19 [place] % (Auto) 7 Eos % (Auto) 0 Baso % (Auto) 1 Neut # (Auto) 5.6 Lymph # (Auto) 1.4 [place] # (Auto) 0.5 Eos # (Auto) 0.0 Baso # (Auto) 0.1 Immature Gran # (Auto) 0.05 H Absolute Nucleated RBC 0.00 Immature Gran % 1 H Nucleated RBC % 0 PT 9.8 INR 0.9 APTT 29.8 VBG pH 7.08 L 7.09 L VBG pCO2 21 L 18 L VBG pO2 32 32 VBG O2 Sat (Zion) 63 L 62 L VBG Base Excess -22 L -23 L Sodium 135 L 138 Potassium 4.6 4.3 Chloride 105 108 H Carbon Dioxide < 10.0 L* < 10.0 L* Anion Gap 20 H 20 H BUN 7 L < 5 L Creatinine 1.3 0.5 L D Estim Creat Clear Calc 69.6 181.1 eGFR > 60 > 60 BUN/Creatinine Ratio 5 L 10 L Glucose [address] Glu mg/dL 301 H Hemoglobin A1c 12.1 H Calculated Osmolality 283 279 Lactic Acid 1.2 11.4 H* Calcium 8.9 7.3 L D Corrected Calcium 8.9 8.5 Phosphorus 1.2 L Magnesium 2.0 1.0 L Total Bilirubin 1.2 AST 14 ALT 11 Alkaline Phosphatase 107 Lactate Dehydrogenase 138 Troponin I < 0.002 Total Protein 7.4 Albumin 5.3 H 2.5 L D Globulin 2.1 L Albumin/Globulin Ratio 2.5 H Triglycerides 391 H Cholesterol 323 H LDL Cholesterol, Calc 204 H HDL Cholesterol 41 Cholesterol/HDL Ratio 7.9 H Beta-Hydroxybutyrate/Acetoacetate > 6.4 H TSH Ur Collection Type Urine Color Urine Clarity Urine pH Ur Specific [place] Urine Protein Urine Glucose (UA) Urine Ketones Urine Blood Urine Nitrite Urine Bilirubin Urine Urobilinogen (Auto) Ur Leukocyte Esterase Urine RBC Urine WBC Ur Squamous Epith Cells Urine Bacteria Urine Yeast (Budding) 03/29/25 03/29/2525 21:18 23:45 23:52 WBC RBC Hgb Hct MCV MCH MCHC RDW Std Deviation Plt Count Neut % (Auto) Lymph % (Auto) [place] % (Auto) Eos % (Auto) Baso % (Auto) Neut # (Auto) Lymph # (Auto) [place] # (Auto) Eos # (Auto) Baso # (Auto) Immature Gran # (Auto) Absolute Nucleated RBC Immature Gran % Nucleated RBC % PT INR APTT VBG pH VBG pCO2 VBG pO2 VBG O2 Sat (Zion) VBG Base Excess Sodium 140 Potassium 3.2 L D Chloride 112 H Carbon Dioxide 11.9 L* Anion Gap 16 BUN < 5 L Creatinine 0.8 Estim Creat Clear Calc 113.2 eGFR > 60 BUN/Creatinine Ratio 6 L Glucose [address] Glu mg/dL Hemoglobin A1c Calculated Osmolality 283 Lactic Acid 1.6 Calcium 7.7 L Corrected Calcium 7.8 L Phosphorus 1.1 L Magnesium 1.8 Total Bilirubin AST ALT Alkaline Phosphatase Lactate Dehydrogenase Troponin I Total Protein Albumin 3.9 D Globulin Albumin/Globulin Ratio Triglycerides Cholesterol LDL Cholesterol, Calc HDL Cholesterol Cholesterol/HDL Ratio Beta-Hydroxybutyrate/Acetoacetate TSH Ur Collection Type Clean Catch Urine Color Colorless A Urine Clarity Clear Urine pH 5.5 Ur Specific [place] 1.021 Urine Protein Negative Urine Glucose (UA) 4+ A Urine Ketones 4+ A Urine Blood Negative Urine Nitrite Negative Urine Bilirubin Negative Urine Urobilinogen (Auto) Negative Ur Leukocyte Esterase Negative Urine RBC 0 Urine WBC 0 Ur Squamous Epith Cells 0 Urine Bacteria None Urine Yeast (Budding) Present A 03/30/25 03/30/25 03/30/25 04:44 07:10 10:40 WBC 5.5 RBC 3.63 L Hgb 12.0 L D Hct 34.0 L D MCV 94 MCH 33.1 MCHC 35.3 RDW Std Deviation 45.9 H Plt Count 173 D Neut % (Auto) 70 Lymph % (Auto) 14 [place] % (Auto) 13 H Eos % (Auto) 1 Baso % (Auto) 1 Neut # (Auto) 3.9 Lymph # (Auto) 0.8 L [place] # (Auto) 0.7 Eos # (Auto) 0.1 Baso # (Auto) 0.0 Immature Gran # (Auto) 0.04 H Absolute Nucleated RBC 0.00 Immature Gran % 1 H Nucleated RBC % 0 PT INR APTT VBG pH VBG pCO2 VBG pO2 VBG O2 Sat (Zion) VBG Base Excess Sodium 143 144 Potassium 3.3 L 3.3 L Chloride 114 H 115 H Carbon Dioxide 17.4 L 18.7 L Anion Gap 12 10 BUN < 5 L < 5 L Creatinine 0.8 0.8 Estim Creat Clear Calc 113.2 113.2 eGFR > 60 > 60 BUN/Creatinine Ratio 6 L 6 L Glucose [address] Glu mg/dL Hemoglobin A1c Calculated Osmolality 288 288 Lactic Acid Calcium 7.9 L 7.9 L Corrected Calcium 8.1 L 8.2 L Phosphorus 1.6 L 2.0 L Magnesium 1.8 2.0 Cancelled Total Bilirubin AST ALT Alkaline Phosphatase Lactate Dehydrogenase Troponin I Total Protein Albumin 3.8 3.6 Globulin Albumin/Globulin Ratio Triglycerides Cholesterol LDL Cholesterol, Calc HDL Cholesterol Cholesterol/HDL Ratio Beta-Hydroxybutyrate/Acetoacetate TSH 1.65 Ur Collection Type Urine Color Urine Clarity Urine pH Ur Specific [place] Urine Protein Urine Glucose (UA) Urine Ketones Urine Blood Urine Nitrite Urine Bilirubin Urine Urobilinogen (Auto) Ur Leukocyte Esterase Urine RBC Urine WBC Ur Squamous Epith Cells Urine Bacteria Urine Yeast (Budding) ABG Interpretation ABG results: 03/29/25 03/29/25 17:52 19:14 VBG pH 7.08 L 7.09 L VBG pCO2 21 L 18 L VBG pO2 32 32 VBG Base Excess -22 L -23 L Quality Measures Quality Measures VTE prophylaxis Assessment & Plan Assessment Current Active Medications: Generic Name Dose Route Start Last Admin Trade Name Catrachoq PRN Reason Stop Dose Admin Dextrose 25 ml 03/30/25 08:23 Dextrose 50%-Water Inj 50 Ml Syringe IV 04/29/25 08:22 Q15MIN PRN BG 50-70 responsive npo pt Dextrose 50 ml 03/30/25 08:23 Dextrose 50%-Water Inj 50 Ml Syringe IV 04/29/25 08:22 Q15MIN PRN BG <50 OR BG <70 & pt unresponsive Enoxaparin Sodium 40 mg 03/30/25 09:00 03/30/25 08:00 Enoxaparin Sod Inj 40 Mg/0.4 Ml Syringe SC 04/13/25 08:59 40 mg QDAY EVIN Administration Glucagon 1 mg 03/30/25 08:23 Glucagon Inj 1 Mg Vial IM Q15MIN PRN BG <70, and no IV access Insulin Degludec 15 unit 03/31/25 09:00 Insulin Degludec 5 Unit/0.05 Ml (Per 5 Units) SC 04/30/25 08:59 QDAY [facility] Insulin Human Lispro 0 unit 03/30/25 11:30 03/30/25 11:27 Insulin Lispro (Admelog) 1 Unit/0.01 Ml Unit SC 04/29/25 11:29 2 unit ACHS EVIN Administration Protocol Insulin Human Lispro 5 unit 03/30/25 11:30 03/30/25 11:27 Insulin Lispro (Admelog) 1 Unit/0.01 Ml Unit SC 04/29/25 11:29 5 unit AC [facility] Administration Plan Patient is a 34 year old male with past medical history of recently diagnosed type 2 diabetes mellitus presented to the ED after routine outpatient labs when he was found to have significantly elevated glucose and was referred to the emergency room. Patient reports he developed abdominal pain approximately since yesterday. Chemistry showed bicarb undetectable <10, anion gap 20, glucose 371, BHB > 6.4. VBG showed pH 7.08, pCO2 21. Patient was started on IV insulin in the ED and was admitted to ICU for further management of DKA. Downgraded to med/surg after resolution of DKA, off IV insulin drip. Neuro: No active problem. Cardiovascular: #Elevated BP (resolved) Diagnostic work up: BP on admission 148/93, likely elevated due to acute status in setting of DKA. Treatment: - No treatment necessary as BP has normalized Treatment follow up: - Continue to monitor BP Respiratory: No active problem. Gastrointestinal: #Abdominal pain (improved) #Nausesa, vomiting (improved) In setting of DKA. Treatment: - Zofran 4mg IVP prn Renal: #Hyperchloremic metabolic acidosis (improving) Ddx: IV fluid resuscitation, RTA in setting of diabetes Diagnostic work up: - Chloride elevated at 112 -> 115 -> 110 Treatment: - No active treatment Treatment follow up: - Follow up urine electrolytes for RTA work up - Continue to monitor AM renal panel #HAGMA (resolved) #NICOL (resolved) Diagnostic work up: On admission, bicarb undetectable <10, anion gap 20, lactic acid 1.2, BHB > 6.4, Cr 1.3. VBG showed pH 7.08, pCO2 21. /: Repeat anion gap 11, bicarb 19.6, Cr 0.8. Good urine output. Treatment: - S/p IV fluids 4L Treatment follow up: - Management per DKA protocol. #Lactic acidosis (resolved) Ddx: metformin induced lactic acidosis versus medication noncomplaince Patient unaware of what diabetic regimen he is on, only taking little blue pill Unclear how long he has been taking metformin (said only 1 day versus 1 month), appears to be poor historian Reports taking metformin yesterday Diagnostic work up: - Lactic acid 1.2 -> 11.4 -> 1.6 - S/p IV fluids 4L LR Treatment follow up: - Consider alternative diabetic management if high suspicion for metformin induced LA Endocrine: #DKA (resolved) #Recently diagnosed diabetes mellitus Diagnostic work up: Per patient he was diagnosed with diabetes 03/28. Started on unknown oral medication, likely metformin. Patient unaware of what diabetic regimen he is on, only taking little blue pill . Reports last took prior to admission. Unclear how long he has been taking metformin (said only 1 day versus 1 month), appears to be poor historian On admission, presented with abdominal pain, nausea and polyuria. Chemistry showed bicarb undetectable <10, anion gap 20, glucose 371, lactic acid 1.2, potassium 4.6, magnesium 2, BHB > 6.4. VBG showed pH 7.08, pCO2 21. Started on IV insulin in the ED and was admitted to ICU for further management of DKA. Treatment: - Weaned off insulin drip, insulin degludec 15 units x1 - Started on insulin degludec 15 units daily - Lispro 5 units + sliding scale with meals - On low carb consistent diet - Fluid and electrolytes management per DKA protocol Treatment follow up: - Glucose checks ACHS - Titrate insulin as needed #Hypokalemia (improving) In setting of DKA Diagnostic work up: - Potassium 3.2 -> 3.3 -> 3.6 Treatment: - S/p 100 mEq KCl overnight, additional 40 mEq this morning - Given another oral 40 mEq KCl Treatment follow up: - Follow up AM CMP Infectious Disease: No active problem. Hematology/Oncology: #Anemia Likely hemodilutional s/p IV fluid resuscitation Denies melena or blood in stool prior to admission Diagnostic work up: - Hgb 15.6 -> 12.0 s/p 4 L IV LR - No reported melena or blood in stool, low suspicion for GI bleed at this time Treatment: - No active treatment at this time Treatment follow up: - Follow up AM CBC ICU Health maintenance: Mechanical ventilation: none Sedation: none Diet: low carb consistent DVT prophylaxis: Lovenox GI prophylaxis: none Burns: none Lines: PIV Antibiotics: none CODE STATUS: FULL Patient plan of care was discussed with the senior resident, Dr. Downs, and attending physician, Dr. Shelton. Angelika Mccartney DO, PGY-1 Attending Provider Attestation/Addendum Patient seen and examined, discussed with residents. In brief this is a 34-year-old male who presented to the ER and was found to have DKA. He was started on DKA protocol with insulin and IV fluids. This morning he is doing well. He does complain of some nausea and vomiting though this is getting better. Has some mild epigastric pain. No significant findings on physical exam. Once his anion gap is closed x 2 will switch to subcu Lantus and a sliding scale. His NICOL improved with IV fluids. He is on as needed Zofran for his nausea and vomiting. Case discussed with ICU team Labs, imaging records reviewed Approximately 35 minutes consumed for eval, exam, review, intervention, discussion formulation of plan of care
--- NOTE | 2025-03-30 13:22 | ESPR_ITS ---
<Statement entered by Poonam Anton MD - 04/09/25 08:32> I reviewed above note and agree with findings and plans. I have also personally examined the patient with medicine team and went over assessment and plan with medical team including medical assistant internal medicine and resident physician. <Statement entered by Lauryn Mendoza MD - 03/30/25 15:40> Mr. Navarro is a 34-year-old male with no known past medical history presented to the ED after he was found to have elevated glucose on routine labs ordered by PCP. Prior to this hospital admission patient had no known knowledge of diabetes diagnosis. A1c on admission was 12.1 patient was found to be in DKA and was started on insulin drip in the ICU. Patient is off of insulin drip and gap is closed. Patient is downgraded to floor for further management. Will continue degludec 15 units, lispro 5 units AC and sliding scale. Will order diabetes education by dietitian and continue to closely monitor blood glucose. Patient was seen and examined by me personally. I have directly supervised and reviewed documentation by the team resident and agree with its findings. ------- Plan of care was discussed with the attending, Dr. Sloane Mendoza, PGY-2 Documentation for date of: 03/30/25 Subjective Subjective Interval history: ICU Downgrade for DKA and lactic acid elevation now resolved. (was taking metformin at home for dm) replete potasium Hgb dropped to 12 today, likely hemodilutional, low concern for acute GI bleed at this time as there has been no reported melena or blood in stool. Exam Vital Signs Temp Pulse Resp BP Pulse Ox O2 Del Method 97.7 F 74 23 H 117/68 99 Room Air 03/30/25 12:00 03/30/25 12:00 03/30/25 12:00 03/30/25 12:00 03/30/25 12:00 03/30/25 10:00 Narrative Exam General: Awake and in no acute distress. Conversational and non-toxic appearing. Setswana speaking male. HEENT: Normocephalic, atraumatic, mucous membranes moist. Heart: Regular rate and rhythm, normal S1 and S2, no murmurs. Lungs: Clear to auscultation with no wheezing or crackles. Abdomen: Soft, nondistended, nontender, positive bowel sounds. No guarding or rebound tenderness. Neurologic: Alert and oriented x3, no gross neurological deficit, and patient able to move all 4 extremities. Extremities: No edema. Skin: No rash or ecchymoses. Objective Labs 03/30/25 04:44 03/30/25 10:40 Labs: Laboratory Results - last 24 hr 03/29/25 03/29/25 03/29/25 16:45 17:52 19:14 WBC 7.7 RBC 4.72 Hgb 15.6 Hct 45.5 MCV 96 MCH 33.1 MCHC 34.3 RDW Std Deviation 48.2 H Plt Count 238 Neut % (Auto) 73 Lymph % (Auto) 19 [place] % (Auto) 7 Eos % (Auto) 0 Baso % (Auto) 1 Neut # (Auto) 5.6 Lymph # (Auto) 1.4 [place] # (Auto) 0.5 Eos # (Auto) 0.0 Baso # (Auto) 0.1 Immature Gran # (Auto) 0.05 H Absolute Nucleated RBC 0.00 Immature Gran % 1 H Nucleated RBC % 0 PT 9.8 INR 0.9 APTT 29.8 VBG pH 7.08 L 7.09 L VBG pCO2 21 L 18 L VBG pO2 32 32 VBG O2 Sat (Zion) 63 L 62 L VBG Base Excess -22 L -23 L Sodium 135 L 138 Potassium 4.6 4.3 Chloride 105 108 H Carbon Dioxide < 10.0 L* < 10.0 L* Anion Gap 20 H 20 H BUN 7 L < 5 L Creatinine 1.3 0.5 L D Estim Creat Clear Calc 69.6 181.1 eGFR > 60 > 60 BUN/Creatinine Ratio 5 L 10 L Glucose [address] Glu mg/dL 301 H Hemoglobin A1c 12.1 H Calculated Osmolality 283 279 Lactic Acid 1.2 11.4 H* Calcium 8.9 7.3 L D Corrected Calcium 8.9 8.5 Phosphorus 1.2 L Magnesium 2.0 1.0 L Total Bilirubin 1.2 AST 14 ALT 11 Alkaline Phosphatase 107 Lactate Dehydrogenase 138 Troponin I < 0.002 Total Protein 7.4 Albumin 5.3 H 2.5 L D Globulin 2.1 L Albumin/Globulin Ratio 2.5 H Triglycerides 391 H Cholesterol 323 H LDL Cholesterol, Calc 204 H HDL Cholesterol 41 Cholesterol/HDL Ratio 7.9 H Beta-Hydroxybutyrate/Acetoacetate > 6.4 H TSH Ur Collection Type Urine Color Urine Clarity Urine pH Ur Specific [place] Urine Protein Urine Glucose (UA) Urine Ketones Urine Blood Urine Nitrite Urine Bilirubin Urine Urobilinogen (Auto) Ur Leukocyte Esterase Urine RBC Urine WBC Ur Squamous Epith Cells Urine Bacteria Urine Yeast (Budding) 03/29/25 03/29/25 03/29/25 21:18 23:45 23:52 WBC RBC Hgb Hct MCV MCH MCHC RDW Std Deviation Plt Count Neut % (Auto) Lymph % (Auto) [place] % (Auto) Eos % (Auto) Baso % (Auto) Neut # (Auto) Lymph # (Auto) [place] # (Auto) Eos # (Auto) Baso # (Auto) Immature Gran # (Auto) Absolute Nucleated RBC Immature Gran % Nucleated RBC % PT INR APTT VBG pH VBG pCO2 VBG pO2 VBG O2 Sat (Zion) VBG Base Excess Sodium 140 Potassium 3.2 L D Chloride 112 H Carbon Dioxide 11.9 L* Anion Gap 16 BUN < 5 L Creatinine 0.8 Estim Creat Clear Calc 113.2 eGFR > 60 BUN/Creatinine Ratio 6 L Glucose [address] Glu mg/dL Hemoglobin A1c Calculated Osmolality 283 Lactic Acid 1.6 Calcium 7.7 L Corrected Calcium 7.8 L Phosphorus 1.1 L Magnesium 1.8 Total Bilirubin AST ALT Alkaline Phosphatase Lactate Dehydrogenase Troponin I Total Protein Albumin 3.9 D Globulin Albumin/Globulin Ratio Triglycerides Cholesterol LDL Cholesterol, Calc HDL Cholesterol Cholesterol/HDL Ratio Beta-Hydroxybutyrate/Acetoacetate TSH Ur Collection Type Clean Catch Urine Color Colorless A Urine Clarity Clear Urine pH 5.5 Ur Specific [place] 1.021 Urine Protein Negative Urine Glucose (UA) 4+ A Urine Ketones 4+ A Urine Blood Negative Urine Nitrite Negative Urine Bilirubin Negative Urine Urobilinogen (Auto) Negative Ur Leukocyte Esterase Negative Urine RBC 0 Urine WBC 0 Ur Squamous Epith Cells 0 Urine Bacteria None Urine Yeast (Budding) Present A 03/30/25 03/30/25 03/30/25 04:44 07:10 10:40 WBC 5.5 RBC 3.63 L Hgb 12.0 L D Hct 34.0 L D MCV 94 MCH 33.1 MCHC 35.3 RDW Std Deviation 45.9 H Plt Count 173 D Neut % (Auto) 70 Lymph % (Auto) 14 [place] % (Auto) 13 H Eos % (Auto) 1 Baso % (Auto) 1 Neut # (Auto) 3.9 Lymph # (Auto) 0.8 L [place] # (Auto) 0.7 Eos # (Auto) 0.1 Baso # (Auto) 0.0 Immature Gran # (Auto) 0.04 H Absolute Nucleated RBC 0.00 Immature Gran % 1 H Nucleated RBC % 0 PT INR APTT VBG pH VBG pCO2 VBG pO2 VBG O2 Sat (Zion) VBG Base Excess Sodium 143 144 141 Potassium 3.3 L 3.3 L 3.6 Chloride 114 H 115 H 110 H Carbon Dioxide 17.4 L 18.7 L 19.6 L Anion Gap 12 10 11 BUN < 5 L < 5 L < 5 L Creatinine 0.8 0.8 0.8 Estim Creat Clear Calc 113.2 113.2 113.2 eGFR > 60 > 60 > 60 BUN/Creatinine Ratio 6 L 6 L 6 L Glucose 208 H [address] Glu mg/dL Hemoglobin A1c Calculated Osmolality 288 288 287 Lactic Acid Calcium 7.9 L 7.9 L 7.9 L Corrected Calcium 8.1 L 8.2 L 8.1 L Phosphorus 1.6 L 2.0 L 2.5 Magnesium 1.8 2.0 Cancelled Total Bilirubin AST ALT Alkaline Phosphatase Lactate Dehydrogenase Troponin I Total Protein Albumin 3.8 3.6 3.7 Globulin Albumin/Globulin Ratio Triglycerides Cholesterol LDL Cholesterol, Calc HDL Cholesterol Cholesterol/HDL Ratio Beta-Hydroxybutyrate/Acetoacetate TSH 1.65 Ur Collection Type Urine Color Urine Clarity Urine pH Ur Specific [place] Urine Protein Urine Glucose (UA) Urine Ketones Urine Blood Urine Nitrite Urine Bilirubin Urine Urobilinogen (Auto) Ur Leukocyte Esterase Urine RBC Urine WBC Ur Squamous Epith Cells Urine Bacteria Urine Yeast (Budding) ABG Interpretation ABG results: 03/29/25 03/29/25 17:52 19:14 VBG pH 7.08 L 7.09 L VBG pCO2 21 L 18 L VBG pO2 32 32 VBG Base Excess -22 L -23 L Quality Measures Quality Measures VTE prophylaxis Assessment & Plan Assessment Current Active Medications: Generic Name Dose Route Start Last Admin Trade Name Freq PRN Reason Stop Dose Admin Dextrose 25 ml 03/30/25 08:23 Dextrose 50%-Water Inj 50 Ml Syringe IV 04/29/25 08:22 Q15MIN PRN BG 50-70 responsive npo pt Dextrose 50 ml 03/30/25 08:23 Dextrose 50%-Water Inj 50 Ml Syringe IV 04/29/25 08:22 Q15MIN PRN BG <50 OR BG <70 & pt unresponsive Enoxaparin Sodium 40 mg 03/30/25 09:00 03/30/25 08:00 Enoxaparin Sod Inj 40 Mg/0.4 Ml Syringe SC 04/13/25 08:59 40 mg QDAY EVIN Administration Glucagon 1 mg 03/30/25 08:23 Glucagon Inj 1 Mg Vial IM Q15MIN PRN BG <70, and no IV access Insulin Degludec 15 unit 03/31/25 09:00 Insulin Degludec 5 Unit/0.05 Ml (Per 5 Units) SC 04/30/25 08:59 QDAY EVIN Insulin Human Lispro 0 unit 03/30/25 11:30 03/30/25 11:27 Insulin Lispro (Admelog) 1 Unit/0.01 Ml Unit SC 04/29/25 11:29 2 unit ACHS EVIN Administration Protocol Insulin Human Lispro 5 unit 03/30/25 11:30 03/30/25 11:27 Insulin Lispro (Admelog) 1 Unit/0.01 Ml Unit SC 04/29/25 11:29 5 unit AC EVIN Administration Ondansetron HCl 4 mg 03/30/25 12:48 Ondansetron Inj 2 Mg/Ml Inj 2 Ml IVP 04/29/25 12:47 Q8HR PRN NAUSEA OR VOMITING Protocol Plan Mr. Mark nelson is a 34 year old gentleman with past medical history of recently diagnosed type 2 diabetes mellitus presented to the ED after routine outpatient labs when he was found to have significantly elevated glucose and was referred to the emergency room. admitted to the ICU for mgmt of DKA, and then resolved with fluids and insulin, later downgraded to the floors, pending d/c likely tomorrow. #HAGMA (resolved) #NICOL (resolved) Dx On admission, bicarb undetectable <10, anion gap 20, lactic acid 1.2, BHB > 6.4, Cr 1.3. VBG showed pH 7.08, pCO2 21. 03/30/25: Repeat anion gap 11, bicarb 19.6, Cr 0.8. Good urine output. Tx: - S/p IV fluids 4L #DKA (resolved) #Recently diagnosed diabetes mellitus #Lactic acidosis 2/2 metformin -resolved Dx Per patient he was diagnosed with diabetes 03/28. Started on unknown oral medication, likely metformin. Patient unaware of what diabetic regimen he is on, only taking little blue pill . Reports last took prior to admission. Unclear how long he has been taking metformin (said only 1 day versus 1 month), appears to be poor historian On admission, presented with abdominal pain, nausea and polyuria. Chemistry showed bicarb undetectable <10, anion gap 20, glucose 371, lactic acid 1.2, potassium 4.6, magnesium 2, BHB > 6.4. VBG showed pH 7.08, pCO2 21. Started on IV insulin in the ED and was admitted to ICU for further management of DKA. - Lactic acid 1.2 -> 11.4 -> 1.6 - S/p IV fluids 4L LR Treatment: - Started on insulin degludec 15 units daily - Lispro 5 units + sliding scale with meals - On low carb consistent diet - Glucose checks ACHS - Titrate insulin as needed - d/c metformin upon discharge? #Hypokalemia (improving) In setting of DKA Dx - Potassium 3.2 -> 3.3 -> 3.6 Treatment: - replete as indicated #Normocytic Anemia Likely hemodilutional s/p IV fluid resuscitation Denies melena or blood in stool prior to admission Dx - Hgb 15.6 -> 12.0 s/p 4 L IV LR - No reported melena or blood in stool, low suspicion for GI bleed at this time Treatment: - No active treatment at this time - Follow up AM CBC Dispo: downgraded from icu, dka resolved, likely d.c tomorrow Diet: carb consistent low, Bowel Reg: senna/docusate prn VTE ppx: lovenox 40 qd GI ppx: not inidcated Code status: FULL Plan discussed with my attending Dr. Anton and my senior Dr. Reji Reyes MD PGY1
--- NOTE | 2025-03-30 14:14 | PC.SS ---
Maximo Canales is a 34-year-old male admitted for DKA. SWA made contact with the patient in the attempt to complete initial. Role and reason for the contact was explained to the patient. Demographic information was verified with the patient. Patient was able to verify his home address, phone number and contact information. Patient reports that he lives at home with his life partner, genna Burnett who he identifies his ([phone]) as his primary care person. Patient reports he is able to complete all ADL's independently and does not utilize any source of DME to assist with ambulation. Patient reports Pharmacy of choice is [facility]. PCP is Emmanuel Lion. At time of discharge patient will return back home, will provide transportation. Discharge plan: Home Next of kin: , Genna Burnett
[2025-03-30 22:55] LABS: Chloride,Urine Random 153.0 mMol/L (55.0-125.0); Potassium,Urine Random 19 mMol/L (12-62); Sodium,Urine Random 70.2 mMol/L (20.0-110.0)
[2025-03-31 05:50] LABS: Basophils # (Auto) 0.0 Thou/mm3 (0.0-0.2); Basophils % (Auto) 1 % (0-2.5); Eosinophils # (Auto) 0.1 Thou/mm3 (0.0-0.5); Eosinophils % (Auto) 3 % (0-10); Hematocrit 34.7 % (41.0-53.0); Hemoglobin 12.1 g/dL (13.5-16.0); Immature Granulocytes Auto 0.02 Thou/mm3 (0.00-0.00); Lymphocytes # (Auto) 1.2 Thou/mm3 (1.0-4.8); Lymphocytes % (Auto) 37 % (10-50); Mean Corpuscular HGB Conc 34.9 g/dl (31.0-37.0); Mean Corpuscular Hemoglobin 32.7 pg (25.0-35.0); Mean Corpuscular Volume 94 fL (80-100); Monocytes # (Auto) 0.4 Thou/mm3 (0.0-0.8); Monocytes % (Auto) 12 % (0-12); Neutrophils # (Auto) 1.5 Thou/mm3 (1.8-7.7); Neutrophils % (Auto) 46 % (37-80); Nucleated Red Blood Cell # 0.00 Thou/mm3 (0.00-0.00); Nucleated Red Blood Cell % 0 /100 WBC (0); Platelet Count 157 Thou/mm3 (140-440); RDW Standard Deviation 45.3 fL (35.1-43.9); Red Blood Count 3.70 Miln/mm3 (4.50-5.90); White Blood Count 3.2 Thou/mm3 (3.8-10.6)
[2025-03-31 06:38] LABS: Alanine Aminotransferase < 7 U/L (10-49); Albumin, Serum 3.9 gm/dL (3.5-5.0); Albumin/Globulin Ratio 2.3 (1.2-2.2); Alkaline Phosphatase 66 U/L (46-116); Anion Gap 15 (7-16); Aspartate Amino Transferase 14 U/L (0-34); BUN/Creatinine Ratio 7 Ratio (12-20); Bilirubin,Total 1.2 mg/dL (0.3-1.2); Blood Urea Nitrogen < 5 mg/dL (9-23); Calcium 8.5 mg/dL (8.3-10.6); Calcium (Corrected) 8.6 mg/dL (8.5-10.1); Carbon Dioxide 20.2 mMol/L (20.0-31.0); Chloride 107 mMol/L (98-107); Creatinine (Component) 0.7 mg/dL (0.6-1.3); Estimated Creatinine Clearance 124.5 mL/min (>60); Globulin 1.7 gm/dL (2.3-3.5); Glucose 243 mg/dL (74-106); Osmolality,Calculated 288 (275-295); Potassium 3.2 mMol/L (3.4-5.1); Sodium 142 mMol/L (136-145); Total Protein 5.6 gm/dL (5.7-8.2); eGFR > 60 See Note
[2025-03-31] MEDS: INSULIN LISPRO (AdmeLOG) 1 UNIT/0.01 ML UNIT SC ×2 (07:43→12:01)
[2025-03-31] MEDS: INSULIN LISPRO (AdmeLOG) 1 UNIT/0.01 ML UNIT 5 UNIT SC ×2 (07:44→12:00)
[2025-03-31 08:00] VITALS: BP 110/72; PULSE 62; RESP 18; TEMP 36.2; O2SAT 97
[2025-03-31] MEDS: ENOXAPARIN SOD INJ 40 MG/0.4 ML SYRINGE SC (08:08)
[2025-03-31] MEDS: INSULIN DEGLUDEC 5 UNIT/0.05 ML (PER 5 UNITS) 15 UNIT SC (08:08)
--- NOTE | 2025-03-31 09:08 | ESDS_ITS ---
<Statement entered by Poonam Anton MD - 04/09/25 08:33> I reviewed above note and agree with findings and plans. I have also personally examined the patient with medicine team and went over assessment and plan with medical team including internetworking technician and resident physician. Planned Discharge Date 03/31/25 DS: Providers Provider Date of admission: 03/29/25 19:02 Primary care physician: Emmanuel Lion MD Admitting Provider: Katelynn Olivo MD Attending Provider on Admission: Katelynn Olivo MD Consults: 03/29/25 18:55 Referral Registered Dietitian Routine Comment: Attending Provider on DC: Dr. Poonam Anton Discharging Provider: Debra Lopez MD DS: Diagnosis Problem List Completed Was Problem List Reviewed/Reconciled?: Yes Hospital Course Hospital Course Hospital course: Hospital Course Mr. Hernandez is a 34-year-old male with a recent diagnosis of Type 2 diabetes mellitus (A1c 12.1) who was admitted to the hospital on 03/29 after routine outpatient labs revealed significantly elevated glucose levels. The patient presented to the ED with abdominal pain, nausea, polyuria. Labs were consistent with diabetic ketoacidosis (DKA), including a glucose level of 371 mg/dL, undetectable bicarbonate (<10), elevated anion gap (20), beta- hydroxybutyrate (BHB) > 6.4, and acidosis (pH 7.08, pCO2 21). Admitted to ICU for insulin gtt and close monitoring of BG, anion gap, and potassium. Throughout his hospital course, the patient?s clinical condition improved significantly. His abdominal pain and nausea resolved with supportive care. Electrolyte abnormalities, including potassium and bicarbonate levels, were corrected, and his anion gap closed. Metabolic acidosis 2/2 elevated lactic acid resolved. NICOL resolved, and patient was able to maintain appropriate urine output. His hemoglobin dropped from 15.6 to 12.0, likely due to hemodilution from IV fluid resuscitation, though no signs of active bleeding were noted. The patient was transitioned from IV insulin to subcutaneous insulin, regimen including degludec 15 units daily and lispro 5 units with meals, plus a sliding scale. Patient tolerating low-carbohydrate consistent diet. Downgraded from ICU to floors on hospital day 3. Patient to closely follow up with PCP for further management of T2DM. Plan to take Metformin 500 mg PO BID and continue with the following insulin regimen: degludec 15 units daily and lispro 5 units with meals, w/ sliding scale. Patient was educated at bedside regarding insulin administration in addition to dietary and lifestyle modifications by staff registered nurse. Patient hemodynamically stable. Labs reviewed and stable. Patient stable and medically cleared for discharge. Diagnoses #HAGMA (resolved) #NICOL (resolved) #DKA (resolved) #Recently diagnosed diabetes mellitus #Lactic acidosis 2/2 metformin (resolved) #Hypokalemia (improving) #Normocytic Anemia Discharge Instructions - Follow up with PCP within 1 week of discharge, if you do not have a primary care physician you can come see us at the [facility] by calling [phone] - Take Metformin 500 mg PO BID - Please take the following insulin regimen: - degludec 15 units daily - Lispro 5 units + sliding scale with meals - Stop taking oral diabetes medication - Continue rest of medications as previously prescribed - Return to the ED or call EMS if symptoms return and/or worsen Sliding scale insulin protocol: - If glucose 180-200 mg/dL --> administer 1U Lispro - If glucose 201-250 mg/dL --> administer 2U Lispro - If glucose 251-300 mg/dL --> administer 3U Lispro - If glucose >300 mg/dL --> administer 4U Lispro Debra Lopez MD PGY1 Time Spent with Patient Time attestation: Total time spent providing and/or coordinating discharge services: Time spent: Greater than 30 minutes Exam Vital Signs Temp Pulse Resp BP Pulse Ox O2 Del Method 97.2 F 62 18 110/72 97 Room Air 03/31/25 08:00 03/31/25 08:00 03/31/25 08:00 03/31/25 08:00 03/31/25 08:00 03/31/25 08:00 Narrative Exam General: No acute distress, well nourished Eye: PERRL, EOMI, normal conjunctiva, no scleral icterus HENT: Normocephalic, atraumatic, normal hearing, moist oral mucosa Neck: Supple, non-tender, no JVD, no lymphadenopathy Lungs: Clear to auscultation bilaterally, non-labored respirations, symmetric chest rise, no use of accessory muscles Heart: Normal S1 and S2, no S3 or S4 appreciated. Normal rate and regular rhythm, no murmurs, rubs gallops, or edema. Peripheral pulses intact bilaterally, capillary refill brisk distally Abdomen: Soft, non-tender, non-distended, normal bowel sounds. No guarding or rebound tenderness. Musculoskeletal: Normal range of motion and strength, no tenderness or swelling Skin: Skin is warm, dry, no rashes or lesions. Neurologic: Alert, awake and oriented x3. CN II-XII grossly intact. No focal neuro deficits. No signs of meningeal irritation noted. Psychiatric: Cooperative, appropriate mood and affect Discharge Plan Plan Patient Disposition: HOME (Self Care) Patient condition on transfer: Stable Care Plan Goals: - Heide seguimiento con pacheco m?dico de cabecera dentro de la semana posterior al ramona. Si no tiene un m?dico de cabecera, puede visitarnos en la [facility]ha llamando al [phone]. - [place] Metformin 500 mg dos veces al edwin - [place] la siguiente mannie de insulina: - Degludec 15 unidades diarias - Lispro 5 unidades + escala m?jorge con las comidas - Deje de yue la medicaci?n oral para la diabetes - Contin?e con el adelso de la medicaci?n seg?n lo prescrito previamente - Regrese a urgencias o llame al servicio m?dico de emergencias si los s?ntomas reaparecen o empeoran. Protocolo de insulina escala m?jorge: - Si la glucosa es de 180-200 mg/dL, administre 1 U de Lispro - Si la glucosa es de 201-250 mg/dL, administre 2 U de Lispro - Si la glucosa es de 251-300 mg/dL, administre 3 U de Lispro - Si la glucosa es >300 mg/dL, administre 4 U de Lispro Prescriptions/Referrals Prescriptions/Med Rec: Continued famotidine 20 mg tablet 20 mg PO BID Discontinued dexamethasone 6 mg tablet 6 mg PO QDAY Qty: 7 0RF methocarbamol 500 mg tablet 500 mg PO BID PRN (Reason: pain) Qty: 20 0RF ibuprofen 800 mg tablet 800 mg PO Q8H PRN (Reason: pain) Qty: 30 0RF naproxen 250 mg tablet 250 mg PO BID PRN (Reason: pain) Qty: 10 0RF Referrals: Emmanuel Lion MD [Primary Care Provider, Family Practice] Patient/Caregiver Discharge Instructions Education Materials: Blood Sugar Monitoring and ..., Getting Support When You Have Diabetes, Diabetic Ketoacidosis Print Language: Singaporean Stand Alone Forms: Karina Award Info., Patient Portal Info Letter Discharge Order Discharge Orders: Discharge (Routine); Ordered 03/31/25 Ordered By: Debra Lopez Quality Discharge Quality Measures VTE prophylaxis
--- NOTE | 2025-03-31 11:54 | PC.NURSE ---
Called Dr Lopez regarding order for patient to receive 40 mEq of potassium chloride PO. I called to clarify order because the sme dose was given earlier this morning. Was informed that team wanted to repeat and to give medication as ordered to patient.
[2025-04-01 09:51] LABS: Misc Send Out* See Sep Rpt
[2025-04-01 09:51] LABS: Misc Send Out* See Sep Rpt
== END 2025-03-31 14:50 | disposition home or self-care (01) | DRG 420 ==
LOC: SERX 19:20 → SERHOLD 19:23 → S2SX 20:49 → S3SX 03-30 13:51
PROVIDERS: Nurse Practitioner Family; Student in an Organized Health Care Education/Training Program; Admitting Provider Student in an Organized Health Care Education/Training Program; Emergency Provider Emergency Medicine; PCP Family Medicine; Visit Provider Student in an Organized Health Care Education/Training Program
DX: E11.10 Type 2 diabetes mellitus with ketoacidosis without coma (principal); N17.9 Acute kidney failure, unspecified; D64.9 Anemia, unspecified; E87.6 Hypokalemia; E87.8 Other disorders of electrolyte and fluid balance, not elsewhere classified
CPT/HCPCS: 36415; 71045; 80053; 80061; 80069; 81001; 82010; 82436; 82803; 83036; 83605; 83615; 83735; 84100; 84133; 84300; 84443; 84484; 85025; 85610; 85730; 86337; 86341; 87040; 87081; 93005; 96361; 96365; 96366; 99283; J1650; J1815; J3475; J3480; J7120; J7121; J7999; A9270